=== PATIENT | male | born 1975 | race Caucasian/White ===

== ENCOUNTER → 2017-12-18 | Outpatient (CLI) | payer OTHER | LOC: M.ULTRA 07:09 | DX: N28.1 Cyst of kidney, acquired (principal) ==

== ENCOUNTER → 2017-12-28 | Outpatient (CLI) | payer OTHER | LOC: M.NUC 07:12 | DX: K83.8 Other specified diseases of biliary tract (principal); K82.8 Other specified diseases of gallbladder ==

== ENCOUNTER → 2018-04-12 | Outpatient (CLI) | payer OTHER | LOC: M.ULTRA 07:18 | DX: N28.1 Cyst of kidney, acquired (principal) ==